=== PATIENT | female | born 1950 | race Caucasian/White ===

== ENCOUNTER 2022-06-03 16:33 | Inpatient (IN) | payer MEDICARE, OTHER ==
[~2022-06-03] VITALS: Ht 160 cm; Wt 71.2 kg
--- NOTE | 2022-06-03 16:33 | NUR ---
BIB [facility] 61 FROM HOME C/O CHEST PAIN, ASA 325MG AND NITRO 0.8 MG BS 117. ATTACHED TO MONITOR, VITALS ARE WITHIN NORMAL LIMITS. AWAITING MD GUAN.
--- NOTE | 2022-06-03 16:49 | NUR ---
COVID TEST COLLECTED AND SENT
[2022-06-03 16:58] LABS: BASOPHILS % (AUTO) 0.4 % (0.0-2.0); HEMATOCRIT 38 % (33-45); LYMPHOCYTES # (AUTO) 2.6 K/uL (0.8-4.8); LYMPHOCYTES % (AUTO) 35.1 % (20.0-44.0); MEAN CORPUSCULAR HGB CONC 34 g/dl (31.0-36.0); MEAN CORPUSCULAR VOLUME 94 fL (82-100); MONOCYTES # (AUTO) 0.4 K/uL (0.1-1.30); MONOCYTES % (AUTO) 5.3 % (2.0-12.0); NEUTROPHILS # (AUTO) 4.4 K/uL (1.8-8.9); NEUTROPHILS % (AUTO) 58.2 % (43.0-81.0); PLATELET COUNT (AUTO) 235 K/uL (150-450); RED BLOOD CELL COUNT(AUTO) 4.04 MIL/uL (4.0-5.2); WHITE BLOOD COUNT (AUTO) 7.5 K/uL (4.3-11.0)
[2022-06-03 17:19] LABS: CALCIUM, SERUM 8.6 mg/dL (8.5-10.1); CARBON DIOXIDE 29 mmol/L (21-32); CHLORIDE 110 mmol/L (98-107); CREATININE 0.9 mg/dL (0.6-1.3); GLUCOSE 103 mg/dL (74-106); POTASSIUM 3.8 mmol/L (3.5-5.1); SODIUM SERUM 145 mmol/L (136-145); UREA NITROGEN, BLOOD 16 mg/dL (7-18)
[2022-06-03] MEDS ORDERED: ATOR40TA PO (18:18)
[2022-06-03] MEDS ORDERED: LORA2TAB95 PO (18:18)
[2022-06-03] MEDS ORDERED: LOSA25TA27 PO (18:18)
[2022-06-03] MEDS ORDERED: NITROGLYCERIN 0.4 MG/TAB BOTTLE SL PRN (18:30)
[2022-06-03] MEDS ORDERED: MAG HYDROX/AL HYDROX/SIMETH 30 ML UDC PO PRN (18:30)
[2022-06-03] MEDS ORDERED: MAGNESIUM HYDROXIDE 30 ML UDC PO PRN (18:30)
[2022-06-03] MEDS ORDERED: Z GUARD REMEDY 4 OZ OINT TP PRN (18:30)
[2022-06-03] MEDS ORDERED: ZOLPIDEM TARTRATE 5 MG TABLET PO PRN (18:30)
[2022-06-03] MEDS ORDERED: ONDANSETRON HCL/PF 4 MG/2 ML VIAL IVP PRN (18:30)
[2022-06-03] MEDS ORDERED: ACETAMINOPHEN 325 MG TABLET PO PRN (18:30)
--- NOTE | 2022-06-03 19:31 | NUR ---
PLACEMENT DIRECTOR AT BEDSIDE
--- NOTE | 2022-06-03 19:34 | NUR ---
BED 311-2
--- NOTE | 2022-06-03 19:59 | NUR ---
REPORT GIVEN TO RN
[2022-06-03 20:15] VITALS: BP 160/82
--- NOTE | 2022-06-03 20:15 | NUR ---
TELERN RECEIVED FROM ER VIA DAVID A 71 Y/O [place] FEMALE WITH DX OF CHEST PAIN. PLACE TO BED COMFORTABLY ORIENTED TO ROOM FACILITIES, ABLE TO SAY AND UNDERSTAND BASIC GREEK. STEADY GAIT BRP, VOIDED FREELY. DENIES ANY CHEST DISCOMFORTS. TELE BOX ON. TO CONTINUE.
--- NOTE | 2022-06-03 20:20 | NUR ---
PT TRANSPORTED TO ROOM 311-2 ON CARDIAC PER ACLS IN STABLE CONDITION
--- NOTE | 2022-06-03 20:42 | NUR ---
TELERN PLACED CALL TO DAUGHTER GHISLAINE FOR FUTHER ADMISSION INFORMATION, AWAITING FOR RETURN CALL.
[2022-06-03] MEDS: LOSARTAN POTASSIUM 25 MG TABLET PO SCH (21:05)
[2022-06-03] MEDS: ENOXAPARIN SODIUM 40 MG/0.4 ML DISP.SYRIN SQ SCH (21:07)
[2022-06-04 00:30] VITALS: BP 126/64
[2022-06-04 04:17] VITALS: BP 110/64
--- NOTE | 2022-06-04 06:05 | NUR ---
TELERN REMAINS SB ON THE MONITOR. V/S STABLE. PAINFREE, NO SOB. NO COMPALINTS MADE. CONTINUED MONITORING
[2022-06-04 06:50] LABS: BASOPHILS % (AUTO) 0.7 % (0.0-2.0); EOSINOPHILS % (AUTO) 1.6 % (0.0-6.0); HEMATOCRIT 38 % (33-45); HEMOGLOBIN 12.9 g/dL (11.5-14.8); LYMPHOCYTES # (AUTO) 2.9 K/uL (0.8-4.8); LYMPHOCYTES % (AUTO) 45.9 % (20.0-44.0); MEAN CORPUSCULAR HGB CONC 34 g/dl (31.0-36.0); MEAN CORPUSCULAR VOLUME 94 fL (82-100); MONOCYTES # (AUTO) 0.4 K/uL (0.1-1.30); MONOCYTES % (AUTO) 6.1 % (2.0-12.0); NEUTROPHILS # (AUTO) 2.9 K/uL (1.8-8.9); NEUTROPHILS % (AUTO) 45.7 % (43.0-81.0); PLATELET COUNT (AUTO) 220 K/uL (150-450); RED BLOOD CELL COUNT(AUTO) 4.07 MIL/uL (4.0-5.2); WHITE BLOOD COUNT (AUTO) 6.4 K/uL (4.3-11.0)
[2022-06-04 07:01] LABS: THYROID STIMULATING HORMONE 1.932 uIU/mL (0.358-3.74)
[2022-06-04 07:18] LABS: CALCIUM, SERUM 8.2 mg/dL (8.5-10.1); CREATININE 0.8 mg/dL (0.6-1.3); MAGNESIUM 2.1 mg/dL (1.8-2.4); POTASSIUM 3.8 mmol/L (3.5-5.1)
--- NOTE | 2022-06-04 07:36 | NUR ---
RN NOTE PT RESTING IN BED, CONTINUES IN ROOM AIR. NOT IN DISTRESS. NO COMPLAINTS OF CHEST PAIN AT THIS TIME. WITH IV ACCESS ON LAC G18. SAFETY MEASURES FOLLOWED. WILL CONT TO MONITOR.
[2022-06-04 08:00] VITALS: BP 128/64
[2022-06-04] MEDS: LOSARTAN POTASSIUM 25 MG TABLET PO SCH (08:45)
[2022-06-04] MEDS ORDERED: ASPIRIN EC 81 MG TABLET.DR PO SCH (09:00)
[2022-06-04] MEDS ORDERED: PANTOPRAZOLE 40 MG VIAL IV SCH (09:00)
[2022-06-04 15:57] VITALS: BP 119/67
[2022-06-04] MEDS: ENOXAPARIN SODIUM 40 MG/0.4 ML DISP.SYRIN SQ SCH (18:27)
--- NOTE | 2022-06-04 19:00 | NUR ---
RN NOTE PT LYING IN BED, CONTINUES IN ROOM AIR. NOT IN DISTRESS. NO COMPLAINTS OF CHEST PAIN AT THIS TIME. WITH IV ACCESS ON LAC G18 WITH NO IVF. DUE MEDS GIVEN, AM/PM CARE RENDERED. SAFETY MEASURES FOLLOWED. WILL CONT TO MONITOR. PT TO BE D/C TONIGHT.
--- NOTE | 2022-06-04 19:00 | NUR ---
RN opening notes Pt is sitting in bed comfortably. Pt is alert and orientedX4. On room air. no SOB. no S/S of distress noted. IV site at LAC# 18 is clean, intact. tele monitor showed SR hr at 68. Pt is going to be DC tonight per MD ordered. Safety precautions is maintained. Will continue to monitor.
--- NOTE | 2022-06-04 19:45 | NUR ---
RN notes Spoke on the phone with pt's daughter Claire regarding DC ordered from MD. Pt's daughter verbalize understanding. Pt's daughter will come and chart picker Pt's mom.
[2022-06-04 20:00] VITALS: BP 138/72
--- NOTE | 2022-06-04 20:48 | NUR ---
RN ISRAEL notes Pt's daughter at the bedside. DC paper work is done, signed and explained instructions to Pt and Pt's daughter Claire. Pt and Pt's daughter verbalize understanding. Per Pt's daughter Claire spoke with MD today regarding DC ordered. VS is stable. No S/s of distress noted. No SOB. Pt's belonging was signed by Pt and given to Pt and Pt's daughter. IV site, tele monitor and arm band was removed. Pt is able to ambulates with a steady gait. Primary nurse assist Pt to the lobby with pt's daughter with no difficulties.
[2022-06-05] MEDS ORDERED: ATORVASTATIN 40 MG TABLET PO SCH (09:00)
== END 2022-06-04 20:50 | disposition home or self-care (01) | DRG 206 ==
LOC: ER 16:35 → TELE 19:51
PROVIDERS: ADMIT Nurse Practitioner Acute Care; ATTEND Nurse Practitioner Acute Care
DX: M94.0 Chondrocostal junction syndrome [Tietze] (principal); F03.90 Unspecified dementia, unspecified severity, without behavioral disturbance, psychotic disturbance, mood disturbance, and anxiety; I10 Essential (primary) hypertension; E78.00 Pure hypercholesterolemia, unspecified; F41.9 Anxiety disorder, unspecified; Z82.3 Family history of stroke; Z79.899 Other long term (current) drug therapy
CPT/HCPCS: 36415; 71045-TC; 80048-TC; 80061-TC; 83735-TC; 84100-TC; 84443-TC; 84484-TC; 85025-TC; 87081-TC; 93307-TC; C9113; C9803; G0378; J1650; J7030